=== PATIENT | male | born 1955 | race Two or more races ===

== ENCOUNTER → 2017-09-17 | Outpatient (CLI) | payer OTHER ==
[~2017-09-17] MED LIST: BENA10TA48 PO
--- NOTE | 2017-09-18 06:16 | HKNOTE ---
DATE OF SERVICE: 09/17/2017 CHIEF COMPLAINT: Right knee pain, low back pain. HISTORY OF PRESENT ILLNESS: This is a 62-year-old male who injured his knee 3 months ago. He had a n injection of his right knee performed by his primary care doctor. He is taking Percocet for pain control. He states that he no longer has right knee pain. He is complaining of pain in the low allegra k. The pain radiates to his left lower extremity. He has occasional numbness and tingling. He den ies any history of trauma to the low back. He has no other complaints. He is using a walker for am bulation. GAIT: Antalgic gait. reciprocal gait pattern. RIGHT KNEE EXAMINATION: Neutral alignment, tender over the medial joint line, 0 to 120 degrees rang e of motion, stable to varus valgus stress, negative Vangie, negative anterior drawer, negative pos terior drawer, negative Maximiliano's. LEFT KNEE EXAMINATION: Neutral alignment, tender over the medial joint line, 0 to 120 degrees range of motion, stable to varus valgus stress, negative Vangie, negative anterior drawer, negative post erior drawer, negative Maximiliano's. BACK EXAMINATION: Tender over the lower lumbar and paralumbar musculature, 40 degrees of flexion, 1 0 degrees of extension. Positive straight leg raise. MRI RIGHT KNEE: There is a horizontal tear of the posterior horn of the medial meniscus. There is chondromalacia of the medial compartment. X-RAYS RIGHT KNEE: 4 views of the right knee demonstrate minimal joint space narrowing of the media l compartment. No fracture or dislocations. X-RAYS AP PELVIS: No degenerative changes, fractures or dislocations are seen. IMPRESSION: A 62-year-old male with resolved right knee pain, low back pain radiating to left lower extremity. PLAN: We will request authorization for physical therapy for core strengthening. We will also requ est authorization for MRI of the lumbar spine. He was given a prescription for meloxicam 10 mg maria elena y, 30 tablets with no refill. He will follow up in 6 weeks. Dictated By: RICKEY WORKMAN/ADRIANA Conf#: [id number] DID#: [id number]
--- NOTE | 2017-09-18 16:51 | RADRPT ---
PROCEDURE: Right knee radiographs. CLINICAL INDICATION: Right knee pain. TECHNIQUE: Four views. Weight bearing. Frontal, lateral, oblique, and patellar view. COMPARISON: No prior studies are available for comparison. FINDINGS: There is no fracture or dislocation. The soft tissues are normal. There are degenerative changes with small osteophytes arising from the joint margins. There is media l joint compartment narrowing. There is no lytic or blastic lesion. There is no radiopaque foreign body. IMPRESSION: 1. Mild to moderate degenerative changes of the right knee. RPTAT: QQ .Rafael Harmon MD, MD Date Time Electronically viewed and signed by .Rafael Harmon MD, on 09/18/2017 16:51 .R/
--- NOTE | 2017-09-18 16:54 | RADRPT ---
PROCEDURE: XR Pelvis. CLINICAL INDICATION: Pelvic pain. TECHNIQUE: Single AP view of the pelvis. COMPARISON: No prior studies are available for comparison. FINDINGS: There is no fracture or dislocation. There is no lytic or blastic lesion. Articular surfaces are intact. The sacroiliac joints are grossly unremarkable. The upper pelvis is not included on the image. IMPRESSION: 1. Upper pelvis not included on the image. 2. Otherwise unremarkable x-ray pelvis. RPTAT: QQ .Rafael Harmon MD, Date Time Electronically viewed and signed by .Rafael Harmon MD, on 09/18/2017 16:53 .R/
== END | disposition home or self-care (01) ==
LOC: HKI 14:35
PROVIDERS: ATTEND Orthopaedic Surgery Adult Reconstructive Orthopaedic Surgery
DX: M25.561 Pain in right knee (principal); M54.5 Low back pain
CPT/HCPCS: 72170; 73564; Z7500; G0463

== ENCOUNTER → 2017-10-02 | Outpatient (CLI) | payer OTHER ==
--- NOTE | 2017-10-02 23:43 | HKNOTE ---
DATE OF SERVICE: 10/02/2017 HISTORY OF PRESENT ILLNESS: Mr. Varner returns today for re-evaluation. He is here to go over the MRI results. He is complaining of severe pain in the low back. He has difficulty ambulating. He h as difficulty performing his activities of daily living. He is taking Philipp 10/325 as was given to him by his primary care doctor. He states that it provides minimal pain relief. He has numbness in his bilateral legs. MRI, LUMBAR SPINE: There is an 8 mm disk protrusion at L2-L3 with moderate canal narrowing. There is an 8 mm disk protrusion at L3-L4 with compression of the L3 left nerve roots. There are 2 mm L4- L5 and L5-S1 disk protrusions. IMPRESSION: A 62-year-old male with multilevel lumbar disk herniation. PLAN: We will request authorization for pain management consultation and spine surgery consultation . He was given a prescription for Philipp 5/325 ten tablets with no refill. He will follow up with dylan escoto as needed. Dictated By: RICKEY WORKMAN/ADRIANA Conf#: [id number] DID#: [id number]
== END | disposition home or self-care (01) ==
LOC: HKI 15:11
PROVIDERS: ATTEND Orthopaedic Surgery Adult Reconstructive Orthopaedic Surgery
DX: M51.26 Other intervertebral disc displacement, lumbar region (principal)
CPT/HCPCS: G0463